=== PATIENT | female | born 1960 | race Caucasian/White ===

== ENCOUNTER 2020-09-13 08:23 | Day surgery (SDC) | payer MEDICARE, MEDICAID ==
[2020-09-13] VITALS (17 sets, daily range): BP systolic 85–148; BP diastolic 51–98
[~2020-09-13] VITALS: Ht 104.1 cm; Wt 68.2 kg
[2020-09-13] MEDS ORDERED: normal saline 1000ml 1,000 ML IV SCH ×2 (08:50→10:35)
[2020-09-13] MEDS ORDERED: OLAN5TAB26 PO (09:05)
[2020-09-13] MEDS ORDERED: SERT100T10 PO (09:05)
[2020-09-13 09:56] LABS: ALBUMIN 3.3 G/DL (3.4-5.0); ANION GAP 6 (8-16); BLOOD UREA NITROGEN 16 MG/DL (7-18); BUN/CREATININE RATIO 20.8 (6.6-38.0); CALCIUM 8.8 MG/DL (8.5-10.1); CHLORIDE 106 MMOL/L (99-107); CREATININE 0.77 MG/DL (0.40-0.90); GLUCOSE 97 MG/DL (70-104); POTASSIUM 4.3 MMOL/L (3.5-5.1); SODIUM 141 MMOL/L (135-145); TOTAL CARBON DIOXIDE 28.6 MMOL/L (24-32); eGFR 77 ML/MIN
[2020-09-13 09:57] LABS: BASOPHILS # (AUTO) 0.1 X10'3 (0-0.2); BASOPHILS % (AUTO) 0.6 % (0-1); EOSINOPHILS # (AUTO) 0.3 X10'3 (0-0.9); EOSINOPHILS % (AUTO) 3.2 % (0-6); HEMATOCRIT 43.4 % (35.0-45.0); HEMOGLOBIN 14.7 g/dl (12.0-16.0); LYMPHOCYTES # (AUTO) 2.4 X10'3 (1.1-4.8); LYMPHOCYTES % (AUTO) 23.3 % (21-51); MEAN CORPUSCULAR HEMOGLOBIN 29.1 PG (27.0-31.0); MEAN CORPUSCULAR HGB CONC 33.8 g/dL (33.0-36.5); MEAN CORPUSCULAR VOLUME 86.1 FL (78-98); MEAN PLATELET VOLUME 7.2 FL (7.4-10.4); MONOCYTES # (AUTO) 0.5 X10'3 (0-0.9); MONOCYTES % (AUTO) 5.4 % (2-12); NEUTROPHILS # (AUTO) 6.8 X10'3 (1.8-7.7); NEUTROPHILS % (AUTO) 67.5 % (42-75); PLATELET COUNT 222 X10'3 (140-440); RED BLOOD COUNT 5.04 X10'6 (4.20-5.60); RED CELL DISTRIBUTION WIDTH 16.1 % (11.5-14.5); WHITE BLOOD COUNT 10.1 X10'3 (4.5-11.0)
[2020-09-13] MEDS ORDERED: midazolam 2 mg/2 ml injection ONE ×2 (10:16→10:54)
[2020-09-13] MEDS ORDERED: fentaNYL/PF 50MCG/1 ML 2ML syringe ONE ×2 (10:16→10:54)
--- NOTE | 2020-09-13 11:45 | NUR ---
per MD, no labs, d/c in 4 hrs if VS stable.
[2020-09-13] MEDS ORDERED: gelatin sponge, absorbable (Gelfoam 12-7MM) sponge TP ONE (12:03)
== END 2020-09-13 15:45 | disposition home or self-care (01) ==
LOC: SSTAY O 08:23
PROVIDERS: ATTEND Radiology Vascular & Interventional Radiology
DX: N28.89 Other specified disorders of kidney and ureter (principal); Z53.8 Procedure and treatment not carried out for other reasons; L76.02 Intraoperative hemorrhage and hematoma of skin and subcutaneous tissue complicating other procedure; Y83.8 Other surgical procedures as the cause of abnormal reaction of the patient, or of later complication, without mention of misadventure at the time of the procedure; Y82.8 Other medical devices associated with adverse incidents
CPT/HCPCS: 36415; 50200; 76937; 77012; 80048; 85025; 85610; J2250; J3010; 99152; 99153

== ENCOUNTER 2020-11-07 06:13 | Day surgery (SDC) | payer MEDICARE, MEDICAID ==
[~2020-11-07] VITALS: Ht 127 cm; Wt 68.0 kg
[~2020-11-07 06:13] MED LIST: OLAN5TAB26 PO; SERT100T10 PO
[2020-11-07] MEDS ORDERED: normal saline 1000ml 1,000 ML IV SCH (06:40)
[2020-11-07 06:45] VITALS: BP 103/68
[2020-11-07] MEDS ORDERED: BUPR1TAB48 SL (06:48)
[2020-11-07] MEDS ORDERED: TIZA4TAB11 PO (06:48)
[2020-11-07] MEDS ORDERED: VALA500T41 PO (06:49)
[2020-11-07 07:26] LABS: BASOPHILS # (AUTO) 0.1 X10'3 (0-0.2); BASOPHILS % (AUTO) 0.9 % (0-1); EOSINOPHILS # (AUTO) 0.3 X10'3 (0-0.9); EOSINOPHILS % (AUTO) 3.7 % (0-6); HEMATOCRIT 37.6 % (35.0-45.0); HEMOGLOBIN 12.6 g/dl (12.0-16.0); LYMPHOCYTES # (AUTO) 1.8 X10'3 (1.1-4.8); LYMPHOCYTES % (AUTO) 19.6 % (21-51); MEAN CORPUSCULAR HEMOGLOBIN 29.8 PG (27.0-31.0); MEAN CORPUSCULAR HGB CONC 33.5 g/dL (33.0-36.5); MEAN PLATELET VOLUME 7.1 FL (7.4-10.4); MONOCYTES # (AUTO) 0.7 X10'3 (0-0.9); MONOCYTES % (AUTO) 7.2 % (2-12); NEUTROPHILS # (AUTO) 6.4 X10'3 (1.8-7.7); NEUTROPHILS % (AUTO) 68.6 % (42-75); PLATELET COUNT 207 X10'3 (140-440); RED BLOOD COUNT 4.22 X10'6 (4.20-5.60); RED CELL DISTRIBUTION WIDTH 13.9 % (11.5-14.5); WHITE BLOOD COUNT 9.4 X10'3 (4.5-11.0)
[2020-11-07 07:41] LABS: ALBUMIN 2.9 G/DL (3.4-5.0); ANION GAP 8 (8-16); BLOOD UREA NITROGEN 8 MG/DL (7-18); BUN/CREATININE RATIO 11.8 (6.6-38.0); CALCIUM 8.4 MG/DL (8.5-10.1); CHLORIDE 101 MMOL/L (99-107); CREATININE 0.68 MG/DL (0.40-0.90); GLUCOSE 303 MG/DL (70-104); POTASSIUM 3.8 MMOL/L (3.5-5.1); SODIUM 137 MMOL/L (135-145); eGFR 89 ML/MIN
[2020-11-07] MEDS ORDERED: fentaNYL/PF 50MCG/1 ML 2ML syringe ONE (08:28)
[2020-11-07] MEDS ORDERED: midazolam 2 mg/2 ml injection ONE (08:28)
[2020-11-07] MEDS ORDERED: gelatin sponge, absorbable (Gelfoam 12-7MM) sponge TP ONE (08:30)
[2020-11-07 08:45] VITALS: BP 124/67
[2020-11-07 08:50] VITALS: BP 123/67
[2020-11-07 08:55] VITALS: BP 114/61
[2020-11-07] MEDS ORDERED: iohexol 300mg/ml 100ml inj. ONE (08:55)
[2020-11-07 09:00] VITALS: BP 96/56
[2020-11-07 09:05] VITALS: BP 129/72
--- NOTE | 2020-11-07 09:30 | NUR ---
Procedure cancelled, pt dc'd via own WC with belongings.
== END 2020-11-07 09:30 | disposition home or self-care (01) ==
LOC: SSTAY O 06:13
PROVIDERS: ATTEND Radiology Vascular & Interventional Radiology
DX: N28.89 Other specified disorders of kidney and ureter (principal); N28.1 Cyst of kidney, acquired; Z79.899 Other long term (current) drug therapy; Z85.41 Personal history of malignant neoplasm of cervix uteri
CPT/HCPCS: 36415; 74170; 76937; 80048; 82948; 85025; 85610; J2250; J3010; Q9967